=== PATIENT | female | born 1985 | race African-American/Black ===

== ENCOUNTER 2020-08-13 19:18 | Emergency (ER) | payer OTHER ==
[~2020-08-13] VITALS: Ht 165.1 cm; Wt 111.1 kg
[~2020-08-13 19:18] MED LIST: AMOXICILLIN875 MG PO; FLONASE16 GM INH; NAPROSYN500 MG PO; NOHOMEMEDICATIONS; PHENERGAN 25 MG25 M1 PO; PREDNISONE 20 M20 M1 PO; XANAX 0.5 MG0.5 M1 PO
[2020-08-13 20:00] VITALS: BP 142/89
[2020-08-13 20:06] LABS: URINE BILIRUBIN NEGATIVE (Negative); URINE BLOOD 3+ (Negative); URINE CLARITY CLEAR; URINE COLOR YELLOW; URINE GLUCOSE-RANDOM* NEGATIVE (Negative); URINE KETONES TRACE (Negative); URINE LEUKOCYTES-REFLEX NEGATIVE (Negative); URINE NITRITE-REFLEX NEGATIVE (Negative); URINE PROTEIN (DIPSTICK) 1+ (Negative); URINE SPECIFIC GRAVITY >= 1.030 (1.005-1.035); URINE UROBILINOGEN 0.2 E.U./dl (0.2-1.0)
[2020-08-13 20:22] LABS: CASTS None Seen /LPF (None Seen); MUCUS 0-3 Light strn/LPF (None Seen); SQUAMOUS 0-3 Few /LPF (0-3); URINE RBC 0-2 Rare /HPF (0-2); URINE WBC-REFLEX 0-5 Rare /HPF (0-5)
[2020-08-13 20:24] LABS: CRYSTALS None Seen /LPF (None Seen)
[2020-08-13 21:31] LABS: HEMATOCRIT 36.5 % (37.0-47.0); HEMOGLOBIN 11.8 gm/dL (12.0-15.0); MCH 28.5 pg (26.0-34.0); MCHC 32.4 g/dL (28.0-37.0); MCV 87.7 fL (80.0-100.0); RBC 4.16 mil/uL (4.20-5.00); RDW 13.6 % (10.5-14.5); WBC 6.7 thou/uL (4.0-11.0)
== END 2020-08-13 22:49 | disposition home or self-care (01) ==
LOC: ER 19:18
PROVIDERS: Nurse Practitioner Family
DX: O20.0 Threatened abortion (principal); O99.511 Diseases of the respiratory system complicating pregnancy, first trimester; J45.909 Unspecified asthma, uncomplicated; Z3A.01 Less than 8 weeks gestation of pregnancy